=== PATIENT | female | born 1980 | race Two or more races ===

== ENCOUNTER 2022-05-04 13:07 | Emergency (ER) | payer MEDICAID, OTHER ==
[~2022-05-04] VITALS: Ht 160 cm; Wt 78.0 kg
[2022-05-04] MEDS ORDERED: HYDROcodone-ACET 5/325MG TAB PO ONE (14:15)
[2022-05-04 14:58] VITALS: BP 184/110
[2022-05-04] MEDS ORDERED: LORazepam 2MG/ML-1ML VIAL IM ONE (15:30)
[2022-05-04] MEDS ORDERED: IBUP800T27 PO (17:14)
== END 2022-05-04 17:24 | disposition home or self-care (01) ==
LOC: ER 13:07
DX: S43.004A Unspecified dislocation of right shoulder joint, initial encounter (principal); E11.9 Type 2 diabetes mellitus without complications; I10 Essential (primary) hypertension; Z98.890 Other specified postprocedural states; Z88.2 Allergy status to sulfonamides; Z88.8 Allergy status to other drugs, medicaments and biological substances; W18.39XA Other fall on same level, initial encounter; Y93.89 Activity, other specified; Y92.89 Other specified places as the place of occurrence of the external cause; Y99.8 Other external cause status
CPT/HCPCS: 23650; 73020; 73030; 96372; 99284; J2060

== ENCOUNTER 2022-05-15 18:59 | Emergency (ER) | payer MEDICAID ==
[~2022-05-15] VITALS: Ht 160 cm; Wt 78.6 kg
[~2022-05-15 18:59] MED LIST: IBUP800T27 PO
[2022-05-15] MEDS ORDERED: KETOROLAC TROMETH 30 MG/ML 1ML VIAL IM ONE (20:30)
[2022-05-15] MEDS ORDERED: DICL-163 PO (23:49)
[2022-05-15] MEDS ORDERED: CYCL-837 PO (23:49)
[2022-05-16 00:05] VITALS: BP 130/68
== END 2022-05-16 00:09 | disposition home or self-care (01) ==
LOC: ER 18:59
DX: M25.511 Pain in right shoulder (principal); E11.9 Type 2 diabetes mellitus without complications; I10 Essential (primary) hypertension; W18.39XA Other fall on same level, initial encounter; Y93.89 Activity, other specified; Y92.89 Other specified places as the place of occurrence of the external cause; Y99.8 Other external cause status
CPT/HCPCS: 73030; 96372; 99283; J1885